=== PATIENT | female | born 2000 | race Caucasian/White ===

== ENCOUNTER 2024-07-25 09:44 | Outpatient (OUT) | payer BC, SELFPAY ==
[2024-07-25 10:14] LABS: Basophils Absolute Auto 0.1 10^3/uL (0.0-0.1); Basophils Percent Auto 0.8 % (0.2-2.0); Eosinophils Absolute Auto 0.1 10^3/uL (0.0-0.7); Eosinophils Percent Auto 1.9 % (0.9-7.0); Hematocrit 38.9 % (36.0-48.0); Hemoglobin 13.4 g/dL (12.0-16.0); Immature Granulocytes Abs Auto 0.03 10^3/uL (0.00-0.03); Immature Granulocytes Pct Auto 0.4 % (0.0-0.5); Lymphocytes Absolute Auto 2.8 10^3/uL (1.2-3.8); Lymphocytes Percent Auto 38.2 % (20.5-60.0); Mean Corpuscular HGB Conc 34.4 g/dL (29.9-35.2); Mean Corpuscular Hemoglobin 30.9 pg (26.7-34.0); Mean Corpuscular Volume 89.8 fL (81.0-99.0); Mean Platelet Volume 10.7 fL (9.5-13.5); Monocytes Absolute Auto 0.5 10^3/uL (0.3-0.8); Monocytes Percent Auto 6.5 % (1.7-12.0); Neutrophils Absolute Auto 3.8 10^3/uL (1.4-6.5); Neutrophils Percent Auto 52.2 % (43.0-75.0); Platelet Count 272 10^3/uL (150-450); Red Blood Count 4.33 10^6/uL (4.20-5.40); Red Cell Distribution Width 11.7 % (11.0-15.0); White Blood Count 7.4 10^3/uL (4.0-11.0)
[2024-07-25 10:41] LABS: Free T4 0.99 ng/dL (0.76-1.46)
[2024-07-25 10:46] LABS: Thyroid Stimulating Hormone 1.527 uIU/mL (0.358-3.740)
[2024-07-25 10:49] LABS: HCG Quantitative <1 mIU/mL
[2024-07-25 10:52] LABS: Estimated Average Glucose 105 mg/dL; Glycohemoglobin A1C 5.3 % (4.5-6.2)
[2024-07-26 08:11] LABS: FSH 4.8 mIU/mL (.); Luteinizing Hormone(LH) 6.3 mIU/mL (.)
[2024-08-01 15:13] LABS: DHEA, Serum 277 ng/dL (31-701)
== END 2024-07-25 09:45 | disposition home or self-care (01) ==
LOC: LAB 09:51
PROVIDERS: PCP Family Medicine; Visit Provider Obstetrics & Gynecology
DX: N97.9 Female infertility, unspecified (principal); N97.0 Female infertility associated with anovulation
CPT/HCPCS: 36415; 82397; 82626; 82627; 83001; 83002; 83036; 84439; 84443; 84702; 85025

== ENCOUNTER 2024-08-31 12:44 | Outpatient (OUT) | payer BC, SELFPAY ==
--- OUTSIDE RECORDS SUMMARY | 2024-08-31 12:49 | XMS_ITS | Encounter Summary ---
Author Organization [facility] Address [address] [place] [address] Care Team Providers Care Terrazzo Layer Helper Name Role Phone Joby Gonzalez MD Primary Care Provider [phone] Encounter Details Date Type Department Care Team (Late st Contact Info) Description 08/19/2024 Telephone [facility] [address] [place] [address] Shanti Powell LPN Social History Tobacco Use Types Packs/Day Years Used Date Smoking Tobacco: Never Smokeless Tobacco: Never Alcohol Use Standard Drinks/Week Comments Not Currently 0 (1 standard drink = 0.6 oz pur e alcohol) caffeine: 2-3 cups per day Comments Unknown Sex and Gender Information Value Date Recorded Sex Assigned at Not on file Legal Sex Female 6:59 PM EDT Gender Identity Not on file Sexual Orientation Not on file documented as of this encounter Miscellaneous Notes * Telephone Encounter - Shanti Powell LPN - 08/19/2024 10:54 AM EDT Patient had called and LMOM stating that she had not started after completing Provera. 08/19/24 @10:45am Called patient and apologized for the late return of call as there was an issue with voicemail from last week. PVU and stated that medication was sent and that pharmacy did not receive it so she did not start it until Thursday this week. Informed patient that was perfectly fine as that was day 5 of her cycle. Patients LMP 08/11/24 and labs will be drawn on 08/31/24. -*-Advised patient if in the future she dose not start her cycle within 2-5 days of completing Provera to reach out to office and 1 month of Apri would be sent after patient confirms negative to reset cycle---IF NEED BE--PVU Shanti Ortega LPN documented in this encounter Plan of Treatment Upcoming Encounters Date Type Department Care Team (Late st Contact Info) Description 11/28/2024 9:40 AM EDT Office Visit [facility] [address] [place] [phone] Florencio Paez, DO [address] [place], [place] [id number] 08/14/2025 10:50 AM EDT Office Visit [facility] [address] [place] [phone] Nithya Spaulding APRN-CHEMISTRY TECHNICAL OFFICER [address] [place] [address] documented as of this encounter Visit Diagnoses Not on filedocumented in this encounter Care Teams Terrazzo Layer Helper Relationship Specialty Start Date End Date Joby Gonzalez MD [address] [facility] [address] [place] [address] PCP - General Family Medicine 04/17/23 documented as of this encounter
--- OUTSIDE RECORDS SUMMARY | 2024-08-31 12:49 | XMS_ITS | Encounter Summary ---
Author Organization [facility] Address [address] [place] [address] Care Team Providers Care Machine Boss Name Role Phone Joby Gonzalez MD Primary Care Provider [phone] Encounter Details Date Type Department Care Team (Late st Contact Info) Description 07/26/2024 Abstract [facility] [address] [place] [address] Florencio Paez [address] [place] [address] Social History Tobacco Use Types Packs/Day Years [...] on file documented as of this encounter Plan of Treatment Upcoming Encounters Date Type Department Care Team (Late st Contact Info) Description 11/28/2024 9:40 AM EDT Office Visit [facility] [address] [place] [id number] Florencio Paez [address] [place] [id number] 08/14/2025 10:50 AM EDT Office Visit [facility] [address] [place] [address] Nithya Spaulding, CLEANER OPERATOR-COMMUNITY ENGAGEMENT SPECIALIST [address] [facility] [address] [place] [address] documented as of this encounter Visit Diagnoses Not on filedocumented in this encounter Care Teams Machine Boss Relationship Specialty Start Date End Date Joby Gonzalez MD [address] [place] [address] [facility] [address] [place] [address] PCP - General Family Medicine 04/17/23 documented as of this encounter
--- OUTSIDE RECORDS SUMMARY | 2024-08-31 12:49 | XMS_ITS | Clinical Summary ---
Author Organization [facility] Address [address] [place] [address] Phone Care Team Providers Care Welder And Fitter Name Role Phone Unavailable Primary Care Provider Unavailabl e Social History Tobacco Use Types Packs/Day Years Used Date Smoking Tobacco: Never Assessed Comments Unknown Sex and Gender Information Value Date Recorded Sex Assigned at Not on file Legal Sex Female 8:29 PM EST Gender Identity Not on file Sexual Orientation Not on file Plan of Treatment Not on file
[2024-09-01 04:07] LABS: Progesterone 0.1 ng/mL (.)
== END 2024-08-31 12:45 | disposition home or self-care (01) ==
LOC: LAB 12:46
PROVIDERS: PCP Family Medicine; Visit Provider Obstetrics & Gynecology
DX: N97.0 Female infertility associated with anovulation (principal)
CPT/HCPCS: 36415; 84144